=== PATIENT | female | born 1945 | race Caucasian/White ===

== ENCOUNTER 2018-02-18 08:51 | Outpatient (CLI) | payer MEDICARE, OTHER ==
--- NOTE | 2018-02-18 13:44 | MRI ---
MRI LUMBAR SPINE NONCONTRAST: DATE: 02/18/18 HISTORY: 73-year-old female with M43.10, spondylolisthesis. Low back pain. COMPARISON: None available. FINDINGS: There is no spondylolisthesis; alignment in the anteroposterior dimension is normal. The vertebral meena dy heights are maintained. There are five lumbar-type vertebrae. At L3-4, there is moderate disc space narrowing. At T12-L1, there is mild disc space narrowing. The rest of the disc spaces are relatively well preserved. Conus medullaris terminates at L1-2. There is a T2-hyperintense and a T1-hypointense partially exophytic 2.4 x 2.2 cm mass protruding ante riorly from the anterior portion of the left renal lower pole. T12-L1: Mild disc bulge. No central or neural foraminal stenosis. L1-2: Minimal disc bulge. No central or neural foraminal stenosis. L2-3: Minimal disc bulge. No central or neural foraminal stenosis. L3-4: Mild disc bulge, which is asymmetrically larger at the right paracentral, right lateral, and r ight far lateral aspects, causing moderate right neural foraminal stenosis, effacing the right latera l recess, and slightly posteriorly displacing the right L4 nerve root. Overall degree of central spin al canal stenosis is mild to moderate. Mild left neural foraminal stenosis. There is bone marrow cj a of the right side of the end plates, consistent with Modic Type I changes. There is mild to moderat e ligamentum flavum thickening bilaterally, without significant facet hypertrophy. L4-5: Mild disc bulge. Mild ligamentum flavum thickening without significant facet hypertrophy. No c entral stenosis. No significant neural foraminal stenosis. L5-S1: Essentially normal. IMPRESSION: 1. Degenerative disc disease on the right side at L3-4, with right lateral recess effacement, modera te right neural foraminal stenosis, and right-sided Modic Type I changes. 2. An approximately 2.5 cm left renal mass. Although this is probably a cyst, there is a possibility that it could be a neoplastic tumor. Recommend renal ultrasound. MARIELLE Baker POS: [facility]
--- NOTE | 2018-02-18 13:57 | RAD ---
LUMBAR SPINE FOUR VIEWS: INDICATIONS: Low back pain. TECHNIQUE: Lateral views were obtained with neutral, flexion, and extension positions. FINDINGS: The lumbar vertebrae maintain normal height. Disk spaces are maintained. Mild degenerative osteophy shameka. Very mild facet hypertrophy. No compression deformity. Slight anterolisthesis at L4-L5 occurs with flexion. Alignment otherwise appears normally maintained. POS: [facility]
== END 2018-02-18 08:52 | disposition home or self-care (01) ==
LOC: SCSMRI 08:51
PROVIDERS: ATTEND Anesthesiology Pain Medicine
DX: M43.16 Spondylolisthesis, lumbar region (principal); M25.78 Osteophyte, vertebrae; M51.36 Other intervertebral disc degeneration, lumbar region; M48.061 Spinal stenosis, lumbar region without neurogenic claudication; N28.89 Other specified disorders of kidney and ureter
CPT/HCPCS: 72100; 72148

== ENCOUNTER 2018-03-05 13:54 | Outpatient (CLI) | payer MEDICARE, OTHER ==
--- NOTE | 2018-03-05 15:25 | ULT ---
RENAL SONOGRAM: DATE: 03/05/2018. HISTORY: Left renal mass seen on MRI exam. COMPARISON: MRI lumbar spine 02/18/2018. FINDINGS: The right kidney measures 9.9 cm x 4.7 cm x 4.5 cm with the left kidney measuring 9.7 cm x 4.7 cm x 4 .7 cm. The right kidney demonstrates normal sonographic appearance without evidence of renal mass, renal yariel culus, or hydronephrosis. There is a circumscribed hypoechoic cystic structure seen at the medial aspect inferior pole left kid jignesh which corresponds to a finding on the MRI examination. There are internal echoes within this cys tic-appearing structure, but there is a well-defined back-walled posterior acoustic enhancement. Int ernal echoes are thought to most likely be attributable to artifact, and this most likely represents a renal cyst, but this is difficult to further characterize due to depth of this structure in relatio n to the skin surface. Nevertheless, this is thought to most likely represent a renal cyst. The urinary bladder is incompletely distended but has a normal sonographic appearance. IMPRESSION: Hypoechoic cystic structure in the inferior pole left kidney which is difficult to characterize due t o depth of this structure in relation to the skin surface, but most likely represents a renal cyst an d corresponds to the MRI examination. Followup renal ultrasound in 6 months may be beneficial for fu rther evaluation. POS: [facility]
== END 2018-03-05 13:55 | disposition home or self-care (01) ==
LOC: SCSULT 13:54
PROVIDERS: ATTEND Anesthesiology Pain Medicine
DX: N28.89 Other specified disorders of kidney and ureter (principal); Q61.9 Cystic kidney disease, unspecified
CPT/HCPCS: 76770

== ENCOUNTER 2018-05-05 09:13 | Outpatient (CLI) | payer MEDICARE, OTHER ==
--- NOTE | 2018-05-05 12:20 | MMO ---
BILATERAL SCREENING MAMMOGRAM: Date: 05/05/18 HISTORY: 73-year-old female. Routine screening mammography. COMPARISON: 03/21/16, 12/12/09. TECHNIQUE: CC and MLO views of both breasts are submitted for interpretation. This patient's mammogram was reviewed with the assistance of computer-aided detection. FINDINGS: The breasts are composed of scattered fibroglandular tissue. Bilaterally, no suspicious dominant mass , architectural distortion, or suspicious calcifications. Stable asymmetry in the upper right breast, only appreciated on the MLO projection. IMPRESSION: BIRADS 2: Benign Finding(s) RECOMMENDATION: Annual mammogram. POS: [facility]
== END 2018-05-05 09:14 | disposition home or self-care (01) ==
LOC: SCSMAMMO 09:13
PROVIDERS: ATTEND Family Medicine
DX: Z12.31 Encounter for screening mammogram for malignant neoplasm of breast (principal)
CPT/HCPCS: 77067

== ENCOUNTER 2018-07-10 11:02 | Outpatient (CLI) | payer MEDICARE, OTHER ==
--- NOTE | 2018-07-10 11:53 | CT ---
CT lumbar spine noncontrast HISTORY: Low back pain. Radiculopathy. COMPARISON: MRI dated 02/18/2018. FINDINGS: Vertebral body heights and alignment are maintained. There is disc space narrowing and endp late irregularity and sclerosis at the thoracolumbar junction with minimal disc bulge. Osteophytosis throughout the facets. No acute fracture or dislocation. At the T3-4 level, there is disc space narrowing and posterior disc bulge. Central canal stenosis geraldo ear similar to the recent MRI exam. Far right lateral protrusion of the disc compresses the right L3 nerve root within and just lateral to the neural foramen. There is severe stenosis of the right ne ural foramen. Images including the retroperitoneum show calcification in the arterial structures and cystic lesions of the right kidney. IMPRESSION:Osseous degenerative changes of the lumbar spine. No acute osseous abnormalities are demon strated. Disc bulge and degenerative changes at the L3-4 level, including central canal stenosis and compressi on of the right L3 nerve root, correlate with findings on MRI exam from 2018.
== END 2018-07-10 11:03 | disposition home or self-care (01) ==
LOC: TBSIIMAG 11:02
PROVIDERS: ATTEND Neurological Surgery
DX: M47.26 Other spondylosis with radiculopathy, lumbar region (principal); M51.16 Intervertebral disc disorders with radiculopathy, lumbar region; M48.061 Spinal stenosis, lumbar region without neurogenic claudication; M43.8X6 Other specified deforming dorsopathies, lumbar region
CPT/HCPCS: 72131

== ENCOUNTER 2018-10-03 11:12 | Outpatient (CLI) | payer MEDICARE, OTHER ==
--- NOTE | 2018-10-03 11:38 | ULT ---
US Renal Bilateral STANDARD HISTORY: Follow-up of renal cyst. COMPARISON: 03/05/2018 exam. FINDINGS: Real-time imaging of the right and left kidneys were. The right kidney measures 8.6 cm, lef t kidney measures 9.1 cm in size. A 2.6 x 3 cm lower pole left renal cyst, it was not as well visualized on the previous examination but appear similar in size. No obstruction. No solid lesion. T he bladder is incompletely distended. IMPRESSION: 2.6 cm lower pole left renal cysts not increased in size as compared to the prior exam.
== END 2018-10-03 11:13 | disposition home or self-care (01) ==
LOC: SCSULT 11:12
PROVIDERS: ATTEND Family Medicine
DX: N28.89 Other specified disorders of kidney and ureter (principal); Q61.02 Congenital multiple renal cysts
CPT/HCPCS: 76770

== ENCOUNTER 2023-10-18 12:16 | Outpatient (CLI) | payer MEDICARE, OTHER | END 2023-10-18 12:17 | disposition home or self-care (01) | LOC: SCSRAD 12:16 | DX: U07.1 COVID-19 (principal) | CPT/HCPCS: 71046 ==

== ENCOUNTER 2024-01-02 14:48 | Outpatient (CLI) | payer MEDICARE, OTHER | END 2024-01-02 14:49 | disposition home or self-care (01) | LOC: SCSRAD 14:48 | DX: M25.562 Pain in left knee (principal); M25.862 Other specified joint disorders, left knee ==

== ENCOUNTER 2024-03-16 15:07 | Inpatient (IN) | payer MEDICARE, OTHER ==
[2024-03-16 15:30] LABS: #Basophils 0.05 10x3/uL (0.0-0.2); #Eosinophils Less than 0.03 10x3/uL (0.0-0.7); %Basophils 0.4 % (0.0-1.0); %Eosinophils 0.2 % (0.0-10.0); %Lymphocytes 15.1 % (21.0-51.0); %Monocytes 8.5 % (0.0-10.0); %Neutrophils 75.5 % (42.0-75.0); Hematocrit 35.7 % (36.0-47.0); Hemoglobin 11.7 g/dL (12.0-16.0); Mean Corpuscular HGB CONC 32.8 g/dL (32.0-36.0); Mean Corpuscular Hemoglobin 29.8 pg (27.0-31.0); Mean Corpuscular Volume 91.1 fL (78.0-98.0); Mean Platelet Volume 11.1 fL (7.4-10.4); Platelet Count 195 10x3/uL (130-400); RBC Distribution Width 13.3 % (11.5-14.5); Red Blood Cell (RBC) Count 3.92 mill/uL (4.20-5.40)
[2024-03-16] MEDS ORDERED: Enoxaparin 80 MG (0.8 mL) SYRINGE ONE (15:31)
[2024-03-16 15:39] LABS: INR-International Normal Ratio 1.2; PTT 33.3 sec (22.9-36.1); Prothrombin Time 15.3 sec (12.0-14.7)
[2024-03-16 15:46] LABS: ALT (SGPT) 85 U/L (8-55); AST (SGOT) 53 U/L (5-34); Albumin 3.7 g/dL (3.4-4.8); Alkaline Phosphatase 96 U/L (40-110); Anion Gap 15 mmol/L (10-20); BUN (Urea Nitrogen) 25 mg/dL (9.8-20.1); Bilirubin, Total 1.3 mg/dL (0.2-1.2); Calc. Creatinine Clearance 0 mL/min (70-130); Calcium 9.2 mg/dL (7.8-10.44); Carbon Dioxide 21 mmol/L (23-31); Chloride 107 mmol/L (98-107); Estimated GFR 56; Globulin 3.7 g/dL (2.4-3.5); Glucose 154 mg/dL (83-110); Potassium 4.4 mmol/L (3.5-5.1); Protein, Total 7.4 g/dL (5.8-8.1); Sodium 139 mmol/L (136-145)
[2024-03-16 15:47] LABS: Magnesium 1.9 mg/dL (1.6-2.6)
[2024-03-16 15:50] LABS: Troponin I 0.016 ng/mL (< 0.028)
[2024-03-16] MEDS ORDERED: dilTIAZem 25 MG/5 ML VIAL ONE ×2 (16:25→17:51)
[2024-03-16] MEDS ORDERED: Ondansetron ODT 4 MG TAB PO PRN (18:26)
[2024-03-16] MEDS ORDERED: Acetaminophen 650 MG Suppository PR PRN (18:26)
[2024-03-16 19:25] LABS: Troponin I 0.014 ng/mL (< 0.028)
[2024-03-16] MEDS ORDERED: Ipratropium/Albuterol 3 ML NEB NEB PRN (19:54)
[2024-03-16] MEDS: Furosemide 40 MG (4 mL) VIAL SLOW IVP SCH (22:04)
[2024-03-16 22:06] VITALS: BMI 33.8
[2024-03-16] MEDS: Magnesium 2 GM/50 ML(in water) 2 GM in Premix 1 BAG IVPB SCH (22:08)
[2024-03-16 22:49] LABS: Troponin I 0.016 ng/mL (< 0.028)
[2024-03-16] MEDS: cefTRIAXone\\ROCEPHIN 1 GM in Sodium Chloride 0.9% 100 ML IVPB SCH (23:20)
[2024-03-16] MEDS: Azithromycin 500 MG in Sodium Chloride 0.9% 250 ML 250 ML IVPB SCH (23:58)
[2024-03-17] MEDS: Acetaminophen 325 MG TAB PO PRN (00:05)
[2024-03-17] MEDS: dilTIAZem 125 MG in Sodium Chloride 0.9% 100 ML IVPB SCH (02:13)
[2024-03-17 04:28] LABS: #Basophils 0.04 10x3/uL (0.0-0.2); %Basophils 0.4 % (0.0-1.0); %Eosinophils 0.3 % (0.0-10.0); %Lymphocytes 12.8 % (21.0-51.0); %Monocytes 8.7 % (0.0-10.0); %Neutrophils 77.5 % (42.0-75.0); Hematocrit 31.7 % (36.0-47.0); Hemoglobin 10.4 g/dL (12.0-16.0); Mean Corpuscular HGB CONC 32.8 g/dL (32.0-36.0); Mean Corpuscular Hemoglobin 29.7 pg (27.0-31.0); Mean Corpuscular Volume 90.6 fL (78.0-98.0); Platelet Count 170 10x3/uL (130-400); RBC Distribution Width 13.4 % (11.5-14.5)
[2024-03-17 04:50] LABS: Anion Gap 14 mmol/L (10-20); BUN (Urea Nitrogen) 24 mg/dL (9.8-20.1); Calc. Creatinine Clearance 73 mL/min (70-130); Calcium 8.6 mg/dL (7.8-10.44); Carbon Dioxide 19 mmol/L (23-31); Chloride 110 mmol/L (98-107); Estimated GFR 69; Glucose 114 mg/dL (83-110); Magnesium 2.3 mg/dL (1.6-2.6); Potassium 3.7 mmol/L (3.5-5.1); Sodium 139 mmol/L (136-145)
[2024-03-17 06:21] LABS: Influenza A by NAA Not Detected (NotDetected); Influenza B by NAA Not Detected (NotDetected); SARS-CoV-2 NAA Rapid Test Not Detected (NotDetected)
[2024-03-17] MEDS: Magnesium 2 GM/50 ML(in water) 2 GM in Premix 1 BAG IVPB SCH (06:32)
[2024-03-17] MEDS: Azithromycin 500 MG in Sodium Chloride 0.9% 250 ML 250 ML IVPB SCH (06:32)
[2024-03-17] MEDS: Enoxaparin 100 MG (1 mL) SYRINGE SC SCH (08:37)
[2024-03-17 13:44] LABS: Legionella Urinary Ag Negative (Negative)
[2024-03-17] MEDS ORDERED: Nitroglycerin 0.4 MG TAB (25 Tab Bottle) SL PRN (15:13)
[2024-03-17] MEDS ORDERED: Lidocaine Viscous Sol 2% 15 ml UD Cup ONE (15:41)
[2024-03-17] MEDS ORDERED: PROPOFOL 200 MG/20 ML VIAL ONE (15:50)
[2024-03-17] MEDS ORDERED: PHENYLEPHRINE-NS 100 MCG/ML 10 ML SYRINGE ONE (15:54)
[2024-03-17] MEDS: Potassium Bicarbonate/Cit Ac 20 MEQ TAB PO SCH (18:51)
[2024-03-17] MEDS: Rosuvastatin 20 MG TAB PO SCH (20:25)
[2024-03-18 04:15] LABS: #Basophils 0.06 10x3/uL (0.0-0.2); %Basophils 0.9 % (0.0-1.0); %Eosinophils 1.9 % (0.0-10.0); %Lymphocytes 23.3 % (21.0-51.0); %Monocytes 10.1 % (0.0-10.0); %Neutrophils 63.4 % (42.0-75.0); Hematocrit 31.9 % (36.0-47.0); Hemoglobin 10.3 g/dL (12.0-16.0); Mean Corpuscular HGB CONC 32.3 g/dL (32.0-36.0); Mean Platelet Volume 11.7 fL (7.4-10.4); Platelet Count 183 10x3/uL (130-400); RBC Distribution Width 13.4 % (11.5-14.5); Red Blood Cell (RBC) Count 3.43 mill/uL (4.20-5.40)
[2024-03-18 04:38] LABS: ALT (SGPT) 50 U/L (8-55); AST (SGOT) 28 U/L (5-34); Albumin 2.9 g/dL (3.4-4.8); Alkaline Phosphatase 77 U/L (40-110); Anion Gap 13 mmol/L (10-20); BUN (Urea Nitrogen) 28 mg/dL (9.8-20.1); Bilirubin, Total 0.5 mg/dL (0.2-1.2); Calc. Creatinine Clearance 70 mL/min (70-130); Calcium 8.5 mg/dL (7.8-10.44); Carbon Dioxide 21 mmol/L (23-31); Chloride 110 mmol/L (98-107); Estimated GFR 65; Globulin 3.4 g/dL (2.4-3.5); Glucose 89 mg/dL (83-110); Magnesium 2.3 mg/dL (1.6-2.6); Potassium 3.7 mmol/L (3.5-5.1); Protein, Total 6.3 g/dL (5.8-8.1); Sodium 140 mmol/L (136-145)
[2024-03-18] MEDS: Apixaban 5 MG TAB PO SCH (08:07)
[2024-03-18] MEDS: Dapagliflozin Propanediol 10 MG TAB PO SCH (08:08)
[2024-03-18] MEDS: Azithromycin 500 MG VIAL ONE (20:46)
[2024-03-18] MEDS: Loratadine 10 MG TAB PO PRN (23:17)
[2024-03-19 05:29] LABS: #Basophils 0.04 10x3/uL (0.0-0.2); %Basophils 0.6 % (0.0-1.0); %Eosinophils 4.9 % (0.0-10.0); %Monocytes 10.6 % (0.0-10.0); %Neutrophils 61.7 % (42.0-75.0); Hematocrit 33.1 % (36.0-47.0); Hemoglobin 10.6 g/dL (12.0-16.0); Mean Corpuscular Hemoglobin 29.8 pg (27.0-31.0); Mean Platelet Volume 11.4 fL (7.4-10.4); Platelet Count 178 10x3/uL (130-400); RBC Distribution Width 13.2 % (11.5-14.5); Red Blood Cell (RBC) Count 3.56 mill/uL (4.20-5.40)
[2024-03-19 05:46] LABS: Anion Gap 13 mmol/L (10-20); BUN (Urea Nitrogen) 20 mg/dL (9.8-20.1); Calc. Creatinine Clearance 82 mL/min (70-130); Calcium 8.4 mg/dL (7.8-10.44); Carbon Dioxide 21 mmol/L (23-31); Chloride 111 mmol/L (98-107); Estimated GFR 77; Glucose 87 mg/dL (83-110); Magnesium 2.3 mg/dL (1.6-2.6); Potassium 4.2 mmol/L (3.5-5.1); Sodium 141 mmol/L (136-145)
[2024-03-19] MEDS: Communication Order-Pharmacy FS ONE (07:42)
[2024-03-19] MEDS: Cholecalciferol 1,000 UNITS (25 MCG) TAB PO SCH (09:00)
[2024-03-19] MEDS: NIFEdipine XL 30 MG ER.TAB PO SCH (09:00)
[2024-03-19] MEDS: Pantoprazole DR 40 MG TAB PO SCH (09:01)
[2024-03-19] MEDS ORDERED: Docusate 100 MG CAP PO PRN (12:01)
[2024-03-19] MEDS ORDERED: Polyethylene Glycol 3350 17 GM Packet PO SCH (12:15)
[2024-03-19] MEDS: Saccharomyces boulardii 250 MG CAP PO SCH ×2 (12:25→13:45)
[2024-03-19] MEDS: Polyethylene Glycol 3350 17 GM Packet PO PRN (12:25)
[2024-03-20 04:39] LABS: #Basophils 0.03 10x3/uL (0.0-0.2); %Basophils 0.4 % (0.0-1.0); %Lymphocytes 17.5 % (21.0-51.0); %Monocytes 8.5 % (0.0-10.0); %Neutrophils 66.3 % (42.0-75.0); Hematocrit 33.8 % (36.0-47.0); Hemoglobin 10.8 g/dL (12.0-16.0); Mean Corpuscular Hemoglobin 29.3 pg (27.0-31.0); Mean Corpuscular Volume 91.8 fL (78.0-98.0); Mean Platelet Volume 11.4 fL (7.4-10.4); Platelet Count 204 10x3/uL (130-400); RBC Distribution Width 13.2 % (11.5-14.5); Red Blood Cell (RBC) Count 3.68 mill/uL (4.20-5.40)
[2024-03-20 05:33] LABS: Anion Gap 13 mmol/L (10-20); BUN (Urea Nitrogen) 15 mg/dL (9.8-20.1); Calc. Creatinine Clearance 84 mL/min (70-130); Calcium 8.6 mg/dL (7.8-10.44); Carbon Dioxide 22 mmol/L (23-31); Chloride 108 mmol/L (98-107); Estimated GFR 80; Glucose 97 mg/dL (83-110); Iron 26 ug/dL (50-170); Iron Binding Capacity, Total 246 mcg/dL (265-497); Magnesium 2.1 mg/dL (1.6-2.6); Sodium 139 mmol/L (136-145)
[2024-03-20 08:34] VITALS: TEMP 98.3
[2024-03-20 11:23] VITALS: BP 141/62
== END 2024-03-20 18:07 | disposition home or self-care (01) | DRG 308 ==
LOC: ERS 15:07 → 2NO 18:32 → OBSVTOIN 18:33
PROVIDERS: ADMIT Internal Medicine; ATTEND Family Medicine
PROC: B24BZZ4 Ultrasonography of Heart with Aorta, Transesophageal (ICD-10-PCS; principal; 2024-03-17)
PROC: 5A2204Z Restoration of Cardiac Rhythm, Single (ICD-10-PCS; 2024-03-17)
DX: I48.19 Other persistent atrial fibrillation (principal); I50.31 Acute diastolic (congestive) heart failure; J18.9 Pneumonia, unspecified organism; J96.01 Acute respiratory failure with hypoxia; I11.0 Hypertensive heart disease with heart failure; K21.9 Gastro-esophageal reflux disease without esophagitis; E66.01 Morbid (severe) obesity due to excess calories; E78.5 Hyperlipidemia, unspecified; I34.0 Nonrheumatic mitral (valve) insufficiency; I07.1 Rheumatic tricuspid insufficiency; I44.7 Left bundle-branch block, unspecified; Z68.34 Body mass index [BMI] 34.0-34.9, adult; Z88.1 Allergy status to other antibiotic agents; Z88.2 Allergy status to sulfonamides; Z88.8 Allergy status to other drugs, medicaments and biological substances; D64.9 Anemia, unspecified
CPT/HCPCS: 36415; 71045; 71046; 80048; 80053; 82728; 83540; 83550; 83735; 83880; 84443; 84484; 85025; 85610; 85730; 87899; 92960; 93005; 93010; 93306; 93312; 94760; 96372; 96374; 96376; J0456; J0696; J1650; J1940; J3475; J7050